=== PATIENT | male | born 1955 | race Two or more races ===

== ENCOUNTER 2022-06-06 11:53 | Emergency (ER) | payer OTHER ==
[~2022-06-06] VITALS: Ht 175.3 cm; Wt 88.5 kg
[2022-06-06] MEDS ORDERED: TIROSINT88 MCG PO (12:31)
[2022-06-06] MEDS ORDERED: GLUMETZA1000 MG PO (12:31)
[2022-06-06] MEDS ORDERED: GLIPIZIDE XL2.5 MG (12:32)
[2022-06-06] MEDS ORDERED: SIMVASTATIN40 MG PO (12:32)
== END 2022-06-06 20:32 | disposition home or self-care (01) ==
LOC: ER 11:53
DX: R53.1 Weakness (principal); E11.9 Type 2 diabetes mellitus without complications; Z79.84 Long term (current) use of oral hypoglycemic drugs; Z20.822 Contact with and (suspected) exposure to COVID-19; K76.0 Fatty (change of) liver, not elsewhere classified; E88.2 Lipomatosis, not elsewhere classified

== ENCOUNTER 2022-12-08 08:07 | Emergency (ER) | payer OTHER ==
[~2022-12-08] VITALS: Ht 177.8 cm; Wt 77.1 kg
[~2022-12-08 08:07] MED LIST: GLIPIZIDE XL2.5 MG; GLUMETZA1000 MG PO; SIMVASTATIN40 MG PO; TIROSINT88 MCG PO
== END 2022-12-08 10:24 | disposition home or self-care (01) ==
LOC: ER 08:07
DX: E11.43 Type 2 diabetes mellitus with diabetic autonomic (poly)neuropathy (principal); K31.84 Gastroparesis; Z79.84 Long term (current) use of oral hypoglycemic drugs; I10 Essential (primary) hypertension